=== PATIENT | male | born 1970 | race Caucasian/White ===

== ENCOUNTER 2018-09-21 12:52 | Day surgery (SDC) | payer OTHER ==
[~2018-09-21 12:52] MED LIST: CEFAZOLIN 1 GM INJ
[2018-09-21] MEDS ORDERED: OXYMETAZOLINE 0.05% 15 ML NAS SPRAY NASAL (16:50)
[2018-09-21] MEDS ORDERED: MIDAZOLAM 1 MG/ML 2 ML INJ (17:01)
[2018-09-21] MEDS ORDERED: PROPOFOL 20 ML (17:01)
[2018-09-21] MEDS ORDERED: ROCURONIUM 50 MG INJ (17:01)
[2018-09-21] MEDS ORDERED: METOCLOPRAMIDE 10 MG INJ (17:02)
[2018-09-21] MEDS ORDERED: FENTAnyl 50 MCG/ML VIAL (17:06)
[2018-09-21] MEDS ORDERED: OXYCODONE/ACETAMINOPHEN (5/325) TAB PO (17:30)
[2018-09-21] MEDS: LIDOCAINE 1%/EPI (1:100,000) (MDV) 20 ML (17:35)
[2018-09-21] MEDS: COCAINE 4% 4 ML TOP (17:35)
[2018-09-21] MEDS: NEOMYC/POLYMYX/BACIT 30 GM OINT TOP (17:36)
[2018-09-21] MEDS ORDERED: GLYCOPYRROLATE 0.4 MG INJ (17:43)
[2018-09-21] MEDS: BACITRACIN/POLYMYXIN 28.35 GM OINT TOP (17:46)
[2018-09-21] MEDS ORDERED: NEOSTIGMINE 10 MG INJ (17:50)
== END 2018-09-21 19:06 | disposition home or self-care (01) ==
LOC: SDS 12:52
DX: J34.2 Deviated nasal septum (principal); E78.5 Hyperlipidemia, unspecified; J44.9 Chronic obstructive pulmonary disease, unspecified
CPT/HCPCS: 30140; 93005

== ENCOUNTER 2018-09-21 22:50 | Emergency (ER) | payer OTHER | END 2018-09-22 02:46 | disposition home or self-care (01) | LOC: E/R 22:50 | DX: R33.9 Retention of urine, unspecified (principal); J45.909 Unspecified asthma, uncomplicated; I10 Essential (primary) hypertension; Z79.82 Long term (current) use of aspirin | CPT/HCPCS: 51702; 99283-25 ==

== ENCOUNTER 2018-09-23 13:16 | Emergency (ER) | payer OTHER | END 2018-09-23 17:57 | disposition home or self-care (01) | LOC: FTE 13:16 | DX: R33.9 Retention of urine, unspecified (principal); I10 Essential (primary) hypertension; J45.909 Unspecified asthma, uncomplicated; Z79.82 Long term (current) use of aspirin | CPT/HCPCS: 51702; 99283-25 ==

== ENCOUNTER 2018-10-01 07:02 | Emergency (ER) | payer OTHER ==
[2018-10-01 07:45] LABS: URINE BLOOD (Dip) POC 3+ (NEGATIVE); URINE GLUCOSE (Dip) POC Negative (NEGATIVE); URINE KETONES (Dip) POC Trace (NEGATIVE); URINE LEUKOCYTE EST (Dip) POC Negative (NEGATIVE); URINE NITRITE (Dip) POC Negative (NEGATIVE); URINE TOTAL PROTEIN POC 2+ (NEGATIVE)
[2018-10-01 07:45] LABS: URINE PH (Dip) POC 5.5 (5.0-8.5)
[2018-10-01 08:30] LABS: URINE BLOOD (Dip) POC 3+ (NEGATIVE); URINE GLUCOSE (Dip) POC Negative (NEGATIVE); URINE KETONES (Dip) POC 1+ (NEGATIVE); URINE LEUKOCYTE EST (Dip) POC Negative (NEGATIVE); URINE NITRITE (Dip) POC Negative (NEGATIVE); URINE TOTAL PROTEIN POC 2+ (NEGATIVE)
[2018-10-01 08:30] LABS: URINE PH (Dip) POC 5.5 (5.0-8.5)
== END 2018-10-01 08:42 | disposition home or self-care (01) ==
LOC: FTE 07:02
DX: T83.098A Other mechanical complication of other urinary catheter, initial encounter (principal); I10 Essential (primary) hypertension; J45.909 Unspecified asthma, uncomplicated; Y73.2 Prosthetic and other implants, materials and accessory gastroenterology and urology devices associated with adverse incidents; Z46.6 Encounter for fitting and adjustment of urinary device; Z87.891 Personal history of nicotine dependence; Z79.82 Long term (current) use of aspirin
CPT/HCPCS: 51702; 81003; 99283-25